=== PATIENT | female | born 1945 | race Caucasian/White ===

== ENCOUNTER → 2016-07-04 | Outpatient (CLI) | payer MEDICARE ==
[~2016-07-04] MED LIST: HUMULIN 70/30 703 M1 IJ; LISINOPRIL20 MG PO; METFORMIN HCL1000 MG PO
[2016-07-04 11:03] LABS: HEMOGLOBIN A1c 7.2 % (4.8-5.6)
[2016-07-04 11:21] LABS: ALBUMIN 4.3 gm/dl (3.1-4.5); ALKALINE PHOSPHATASE 60 U/L (45-117); BILIRUBIN, DIRECT 0.1 mg/dL (0.0-0.2); BILIRUBIN, TOTAL 0.7 mg/dl (0.2-1.0); BUN 24 mg/dl (7-24); CARBON DIOXIDE 27 mmol/L (21-32); CHLORIDE 105 mmol/L (98-107); CHOLESTEROL 144 mg/dL (<200); EST GLOM FILT AFRICAN AMERICAN > 60 ml/min; GLUCOSE 154 mg/dL (65-99); HDL CHOLESTEROL 40 mg/dl (40-60); SGOT/AST 29 IU/L (3-35); SGPT/ALT 36 U/L (12-78); SODIUM 142 mmol/L (136-145); TOTAL PROTEIN 7.6 gm/dL (6.4-8.2); TRIGLYCERIDES 476 mg/dl (<150)
[2016-07-04 12:31] LABS: VITAMIN D, 25-HYDROXY 36.1 ng/mL (30-100)
== END | disposition home or self-care (01) ==
LOC: LAB 10:22
PROVIDERS: Internal Medicine
DX: E11.65 Type 2 diabetes mellitus with hyperglycemia (principal); E03.9 Hypothyroidism, unspecified; E11.40 Type 2 diabetes mellitus with diabetic neuropathy, unspecified; E04.9 Nontoxic goiter, unspecified; E78.5 Hyperlipidemia, unspecified

== ENCOUNTER → 2017-06-12 | Outpatient (CLI) | payer MEDICARE ==
[2017-06-12 08:01] LABS: BILIRUBIN NEGATIVE (NEGATIVE); BLOOD TRACE-INTACT (NEGATIVE); CLARITY CLOUDY (CLEAR); COLOR YELLOW (YELLOW); GLUCOSE 3+ (NEGATIVE); KETONE NEGATIVE (NEGATIVE); LEUKO ESTERASE 1+ (NEGATIVE); NITRITE POSITIVE (NEGATIVE); SPECIFIC GRAVITY 1.025 (1.005-1.030); UROBILINOGEN 0.2 E.U./dl (0.2-1.0)
[2017-06-12 08:39] LABS: ALBUMIN 3.7 gm/dl (3.1-4.5); BILIRUBIN, DIRECT 0.2 mg/dL (0.0-0.2); BUN 22 mg/dl (7-24); CHLORIDE 108 mmol/L (98-107); POTASSIUM 3.9 mmol/L (3.5-5.1); SGOT/AST 22 IU/L (3-35); SGPT/ALT 31 U/L (12-78); SODIUM 143 mmol/L (136-145); TRIGLYCERIDES 197 mg/dl (<150); VLDL CHOLESTEROL 39 mg/dL (6-40)
[2017-06-12 08:41] LABS: ALKALINE PHOSPHATASE 54 U/L (45-117); CHOLESTEROL 134 mg/dL (<200); HDL CHOLESTEROL 39 mg/dl (40-60); LDL CHOLESTEROL 56 mg/dL (9-159); TOTAL PROTEIN 6.8 gm/dL (6.4-8.2)
[2017-06-12 09:06] LABS: WBC TNTC wbc/hpf (0-5)
[2017-06-12 09:08] LABS: BACTERIA 4+
== END | disposition home or self-care (01) ==
LOC: LAB 07:35
PROVIDERS: Internal Medicine
DX: E11.65 Type 2 diabetes mellitus with hyperglycemia (principal); E78.5 Hyperlipidemia, unspecified; E55.9 Vitamin D deficiency, unspecified

== ENCOUNTER → 2018-05-28 | Outpatient (CLI) | payer MEDICARE ==
[2018-05-28 13:35] LABS: BUN 28 mg/dl (7-24); CHLORIDE 105 mmol/L (98-107); CHOLESTEROL 109 mg/dL (<200); CREATININE 1.04 mg/dL (0.55-1.02); HDL CHOLESTEROL 38 mg/dl (40-60); LDL CHOLESTEROL 29 mg/dL (9-159); SODIUM 139 mmol/L (136-145); TRIGLYCERIDES 209 mg/dl (<150); VLDL CHOLESTEROL 42 mg/dL (6-40)
[2018-05-28 14:05] LABS: BILIRUBIN NEGATIVE (NEGATIVE); BLOOD NEGATIVE (NEGATIVE); CLARITY CLEAR (CLEAR); COLOR YELLOW (YELLOW); GLUCOSE 3+ (NEGATIVE); KETONE NEGATIVE (NEGATIVE); LEUKO ESTERASE NEGATIVE (NEGATIVE); NITRITE POSITIVE (NEGATIVE); PH 5.5 (5.0-9.0); UROBILINOGEN 0.2 E.U./dl (0.2-1.0)
[2018-05-28 14:19] LABS: BACTERIA 4+; EPITHELIAL CELLS 0-2; WBC 16-20 wbc/hpf (0-5)
== END | disposition home or self-care (01) ==
LOC: LAB 12:34
PROVIDERS: Internal Medicine
DX: E11.65 Type 2 diabetes mellitus with hyperglycemia (principal); E55.9 Vitamin D deficiency, unspecified; E78.5 Hyperlipidemia, unspecified

== ENCOUNTER 2018-11-24 23:28 | Emergency (ER) | payer MEDICARE ==
[~2018-11-24] VITALS: Ht 154.9 cm; Wt 68.0 kg
[2018-11-25 00:32] LABS: ACT PARTIAL THROMBO TIME 27.6 SECONDS (20.0-32.1)
[2018-11-25 00:41] LABS: BASO % 0.7 % (0.0-1.0); EOS # 0.2 10*3/uL (0.0-0.4); HEMATOCRIT 38.8 % (37.0-47.0); HEMOGLOBIN 13.2 g/dl (12.0-16.0); LYMPH # 2.8 10*3/uL (1.3-4.4); LYMPH % 46.9 % (27.0-41.0); MEAN CORPUSCULAR HGB 28.6 pg (27.0-31.0); MEAN PLATELET VOLUME 10.7 fl (9.6-12.3); MONO # 0.5 10*3/uL (0.1-1.0); MONO % 8.3 % (3.0-9.0); NEUT # 2.4 10*3/uL (2.3-7.9); NEUT % 40.9 % (47.0-73.0); PLATELET COUNT AUTOMATED 184 10*3/uL (130-400); RED BLOOD COUNT 4.62 10*6/uL (4.10-5.10); RED CELL DISTRI WIDTH 12.2 % (0-14.5); WHITE BLOOD COUNT 5.9 10*3/uL (4.8-10.8)
[2018-11-25 01:03] LABS: ALBUMIN 4.3 gm/dl (3.1-4.5); ALKALINE PHOSPHATASE 46 U/L (45-117); BUN 27 mg/dl (7-24); CHLORIDE 100 mmol/L (98-107); CREATININE 0.86 mg/dL (0.55-1.02); LIPASE 187 U/L (73-393); POTASSIUM 3.8 mmol/L (3.5-5.1); SGOT/AST 23 IU/L (3-35); SGPT/ALT 22 U/L (12-78); SODIUM 138 mmol/L (136-145); TOTAL PROTEIN 7.4 gm/dL (6.4-8.2)
[2018-11-25 01:05] LABS: TROPONIN I < 0.015 ng/ml (<0.045)
[2018-11-25 02:15] LABS: BILIRUBIN NEGATIVE (NEGATIVE); BLOOD NEGATIVE (NEGATIVE); CLARITY CLEAR (CLEAR); COLOR YELLOW (YELLOW); GLUCOSE NEGATIVE (NEGATIVE); KETONE NEGATIVE (NEGATIVE); LEUKO ESTERASE NEGATIVE (NEGATIVE); NITRITE NEGATIVE (NEGATIVE); SPECIFIC GRAVITY 1.015 (1.005-1.030)
[2018-11-25] MEDS ORDERED: PROTONIX40 MG PO (02:19)
[2018-11-25] MEDS ORDERED: ZOFRAN4 MG PO (02:19)
== END 2018-11-25 02:35 | disposition home or self-care (01) ==
LOC: ED 23:28
PROVIDERS: Emergency Medicine Emergency Medical Services
DX: K29.00 Acute gastritis without bleeding (principal); K21.9 Gastro-esophageal reflux disease without esophagitis; E11.9 Type 2 diabetes mellitus without complications; Z79.899 Other long term (current) drug therapy; Z79.4 Long term (current) use of insulin

== ENCOUNTER → 2019-03-04 | Outpatient (CLI) | payer MEDICARE ==
[~2019-03-04] MED LIST changes: +PROTONIX40 MG PO; +ZOFRAN4 MG PO
[2019-03-04 11:28] LABS: BILIRUBIN NEGATIVE (NEGATIVE); BLOOD NEGATIVE (NEGATIVE); CLARITY SL CLOUDY (CLEAR); COLOR YELLOW (YELLOW); GLUCOSE NEGATIVE (NEGATIVE); KETONE TRACE (NEGATIVE); LEUKO ESTERASE NEGATIVE (NEGATIVE); NITRITE NEGATIVE (NEGATIVE); SPECIFIC GRAVITY >= 1.030 (1.005-1.030); UROBILINOGEN 0.2 E.U./dl (0.2-1.0)
[2019-03-04 11:56] LABS: ALBUMIN 3.9 gm/dl (3.1-4.5); ALKALINE PHOSPHATASE 65 U/L (45-117); BILIRUBIN, DIRECT 0.2 mg/dL (0.0-0.2); BUN 24 mg/dl (7-24); CHLORIDE 104 mmol/L (98-107); CHOLESTEROL 170 mg/dL (<200); CREATININE 0.87 mg/dL (0.55-1.02); HDL CHOLESTEROL 30 mg/dl (40-60); LDL CHOLESTEROL 104 mg/dL (9-159); SGOT/AST 20 IU/L (3-35); SGPT/ALT 24 U/L (12-78); SODIUM 137 mmol/L (136-145); TRIGLYCERIDES 181 mg/dl (<150); VLDL CHOLESTEROL 36 mg/dL (6-40)
[2019-03-04 12:33] LABS: BACTERIA 2+; CALCIUM OXALATE CRYSTALS 1+; MUCOUS 1+
[2019-03-04 12:34] LABS: HYALINE CAST TNTC
[2019-03-04 13:04] LABS: VITAMIN D, 25-HYDROXY 66.8 ng/mL (30-100)
== END | disposition home or self-care (01) ==
LOC: LAB 10:53
PROVIDERS: Internal Medicine
DX: E11.40 Type 2 diabetes mellitus with diabetic neuropathy, unspecified (principal); E11.65 Type 2 diabetes mellitus with hyperglycemia; E78.5 Hyperlipidemia, unspecified; E55.9 Vitamin D deficiency, unspecified; E04.9 Nontoxic goiter, unspecified

== ENCOUNTER → 2019-05-14 | Outpatient (CLI) | payer MEDICARE | END | disposition home or self-care (01) | LOC: RESCLI 17:11 | DX: J40 Bronchitis, not specified as acute or chronic (principal) ==

== ENCOUNTER → 2019-08-05 | Outpatient (CLI) | payer MEDICARE ==
[2019-08-05 11:07] LABS: ALBUMIN 3.9 gm/dl (3.1-4.5); BILIRUBIN, DIRECT 0.2 mg/dL (0.0-0.2); CREATININE 1.21 mg/dL (0.55-1.02); FREE T4 0.94 ng/dl (0.76-1.46); POTASSIUM 3.9 mmol/L (3.5-5.1); TOTAL PROTEIN 7.8 gm/dL (6.4-8.2)
[2019-08-05 11:12] LABS: THYROID STIM HORMONE (HS) 1.98 uIU/ml (0.358-4.75)
[2019-08-05 12:11] LABS: BILIRUBIN NEGATIVE (NEGATIVE); BLOOD 2+ (NEGATIVE); CLARITY SL CLOUDY (CLEAR); COLOR YELLOW (YELLOW); GLUCOSE NEGATIVE (NEGATIVE); KETONE NEGATIVE (NEGATIVE); LEUKO ESTERASE NEGATIVE (NEGATIVE); NITRITE NEGATIVE (NEGATIVE); PH 6.5 (5.0-9.0); UROBILINOGEN 0.2 E.U./dl (0.2-1.0)
[2019-08-05 12:12] LABS: BACTERIA 1+
== END | disposition home or self-care (01) ==
LOC: LAB 10:02
PROVIDERS: Internal Medicine
DX: E11.65 Type 2 diabetes mellitus with hyperglycemia (principal); E78.5 Hyperlipidemia, unspecified; E55.9 Vitamin D deficiency, unspecified; E04.9 Nontoxic goiter, unspecified

== ENCOUNTER → 2019-12-23 | Outpatient (CLI) | payer MEDICARE ==
[2019-12-23 10:36] LABS: BILIRUBIN Negative (Negative); BLOOD 1+ (Negative); CLARITY Turbid (Clear); COLOR Yellow (Yellow); GLUCOSE Negative (Negative); KETONE Trace (Negative); LEUKO ESTERASE 1+ (Negative); NITRITE Negative (Negative); SPECIFIC GRAVITY 1.025 (1.001-1.030)
[2019-12-23 11:02] LABS: ALBUMIN 3.9 gm/dl (3.1-4.5); BILIRUBIN, DIRECT 0.1 mg/dL (0.0-0.2); CREATININE 1.52 mg/dL (0.55-1.02); FREE T4 0.92 ng/dl (0.76-1.46); POTASSIUM 3.8 mmol/L (3.5-5.1); TOTAL PROTEIN 7.4 gm/dL (6.4-8.2)
[2019-12-23 11:04] LABS: BACTERIA 4+; COARSE GRANULAR CAST TNTC; WBC 51-100 wbc/hpf (0-5)
[2019-12-23 11:07] LABS: THYROID STIM HORMONE (HS) 2.42 uIU/ml (0.358-4.75)
[2019-12-23 11:33] LABS: VITAMIN D, 25-HYDROXY 89.2 ng/mL (30-100)
== END | disposition home or self-care (01) ==
LOC: LAB 10:03
PROVIDERS: ATTEND Internal Medicine
DX: E11.65 Type 2 diabetes mellitus with hyperglycemia (principal); E04.9 Nontoxic goiter, unspecified; E55.9 Vitamin D deficiency, unspecified; E78.5 Hyperlipidemia, unspecified

== ENCOUNTER 2020-05-05 10:45 | Observation (INO) | payer MEDICARE ==
[~2020-05-05] VITALS: Ht 154.9 cm; Wt 59.0 kg
[2020-05-05 11:00] VITALS: BP 102/36
[2020-05-05 11:17] LABS: BASO % 0.5 % (0.0-1.0); EOS # 0.2 10*3/uL (0.0-0.4); EOS % 2.5 % (1.0-4.0); HEMATOCRIT 33.8 % (37.0-47.0); LYMPH # 1.9 10*3/uL (1.3-4.4); MEAN CELL VOLUME 85.8 fl (81.0-99.0); MEAN CORPUSCULAR HGB 28.9 pg (27.0-31.0); MEAN CORPUSCULAR HGB CONC 33.7 g/dl (33.0-37.0); MEAN PLATELET VOLUME 10.9 fl (9.6-12.3); MONO # 0.7 10*3/uL (0.1-1.0); NEUT # 3.2 10*3/uL (2.3-7.9); NEUT % 53.8 % (47.0-73.0); PLATELET COUNT AUTOMATED 192 10*3/uL (130-400); RED BLOOD COUNT 3.94 10*6/uL (4.10-5.10); RED CELL DISTRI WIDTH 12.9 % (0-14.5); WHITE BLOOD COUNT 5.9 10*3/uL (4.8-10.8)
[2020-05-05 11:33] LABS: LIPASE 196 U/L (73-393)
[2020-05-05 11:34] LABS: ALBUMIN 3.8 gm/dl (3.1-4.5); ALKALINE PHOSPHATASE 56 U/L (45-117); BUN 17 mg/dl (7-24); CHLORIDE 99 mmol/L (98-107); CREATININE 1.46 mg/dL (0.55-1.02); POTASSIUM 3.1 mmol/L (3.5-5.1); SGOT/AST 33 IU/L (3-35); SGPT/ALT 36 U/L (12-78); SODIUM 135 mmol/L (136-145); TOTAL PROTEIN 7.1 gm/dL (6.4-8.2)
[2020-05-05 11:36] LABS: TROPONIN I < 0.015 ng/ml (<0.045)
[2020-05-05 13:27] VITALS: BP 103/58
[2020-05-05 15:36] VITALS: BP 105/56
[2020-05-05 15:59] VITALS: BP 126/41
[2020-05-05 17:10] VITALS: BP 117/73
[2020-05-05] MEDS ORDERED: CRESTOR40 M1 PO (18:16)
[2020-05-05] MEDS ORDERED: LISINOPRIL20 MG PO (18:16)
[2020-05-05] MEDS ORDERED: HYDROCHLOROTH12.5 M2 PO (18:17)
[2020-05-05] MEDS ORDERED: GLUCOPHAGE500 M1 PO (18:17)
[2020-05-05] MEDS ORDERED: NOVOLIN 70100 UNIT/2 SQ (18:18)
[2020-05-05 20:00] VITALS: BP 130/61
[2020-05-06] VITALS: BP 92/50; BP 95/48
[2020-05-06 06:16] LABS: BASO % 0.5 % (0.0-1.0); EOS # 0.2 10*3/uL (0.0-0.4); EOS % 3.2 % (1.0-4.0); HEMATOCRIT 34.7 % (37.0-47.0); LYMPH # 2.3 10*3/uL (1.3-4.4); LYMPH % 39.9 % (27.0-41.0); MEAN CELL VOLUME 86.1 fl (81.0-99.0); MEAN CORPUSCULAR HGB 28.5 pg (27.0-31.0); MEAN CORPUSCULAR HGB CONC 33.1 g/dl (33.0-37.0); MEAN PLATELET VOLUME 11.1 fl (9.6-12.3); MONO # 0.6 10*3/uL (0.1-1.0); MONO % 9.8 % (3.0-9.0); NEUT # 2.7 10*3/uL (2.3-7.9); NEUT % 46.4 % (47.0-73.0); PLATELET COUNT AUTOMATED 203 10*3/uL (130-400); RED BLOOD COUNT 4.03 10*6/uL (4.10-5.10); RED CELL DISTRI WIDTH 12.8 % (0-14.5); WHITE BLOOD COUNT 5.7 10*3/uL (4.8-10.8)
[2020-05-06 06:29] LABS: CREATININE 1.38 mg/dL (0.55-1.02); POTASSIUM 3.8 mmol/L (3.5-5.1)
[2020-05-06 08:00] VITALS: BP 99/56
== END 2020-05-06 11:04 | disposition home or self-care (01) ==
LOC: ED 10:45 → EDHOLD 15:58 → 4E 16:11
PROVIDERS: Emergency Medicine; Family Medicine; ADMIT Internal Medicine; ATTEND Internal Medicine
DX: R07.89 Other chest pain (principal); E87.6 Hypokalemia; E87.1 Hypo-osmolality and hyponatremia; D64.9 Anemia, unspecified; K21.9 Gastro-esophageal reflux disease without esophagitis; E78.5 Hyperlipidemia, unspecified; I12.9 Hypertensive chronic kidney disease with stage 1 through stage 4 chronic kidney disease, or unspecified chronic kidney disease; E11.22 Type 2 diabetes mellitus with diabetic chronic kidney disease; N18.30 Chronic kidney disease, stage 3 unspecified; E83.41 Hypermagnesemia; F41.9 Anxiety disorder, unspecified

== ENCOUNTER → 2020-05-21 | Outpatient (CLI) | payer MEDICARE ==
[~2020-05-21] MED LIST changes: +CRESTOR40 M1 PO; +GLUCOPHAGE500 M1 PO; +HYDROCHLOROTH12.5 M2 PO; +NOVOLIN 70100 UNIT/2 SQ; +PYRIDIUM200 M1 PO; +SEPTDS PO
== END | disposition home or self-care (01) ==
LOC: RESCLI 01:18
PROVIDERS: ATTEND Internal Medicine Nephrology
DX: I12.9 Hypertensive chronic kidney disease with stage 1 through stage 4 chronic kidney disease, or unspecified chronic kidney disease (principal); E11.22 Type 2 diabetes mellitus with diabetic chronic kidney disease; N18.30 Chronic kidney disease, stage 3 unspecified; K21.9 Gastro-esophageal reflux disease without esophagitis; F41.9 Anxiety disorder, unspecified; E78.5 Hyperlipidemia, unspecified; E55.9 Vitamin D deficiency, unspecified; Z12.31 Encounter for screening mammogram for malignant neoplasm of breast; Z12.11 Encounter for screening for malignant neoplasm of colon; Z79.899 Other long term (current) drug therapy

== ENCOUNTER → 2020-05-25 | Outpatient (CLI) | payer MEDICARE ==
[2020-05-25 14:02] LABS: BILIRUBIN Negative (Negative); BLOOD Negative (Negative); CLARITY Cloudy (Clear); COLOR Yellow (Yellow); GLUCOSE Negative (Negative); KETONE Trace (Negative); LEUKO ESTERASE Trace (Negative); NITRITE Negative (Negative); PH 5.5 (4.5-8.0)
[2020-05-25 14:11] LABS: ALBUMIN 3.4 gm/dl (3.1-4.5); BILIRUBIN, DIRECT 0.2 mg/dL (0.0-0.2); CREATININE 1.23 mg/dL (0.55-1.02); POTASSIUM 3.7 mmol/L (3.5-5.1); TOTAL PROTEIN 6.8 gm/dL (6.4-8.2)
[2020-05-25 14:27] LABS: VITAMIN D, 25-HYDROXY 60.2 ng/mL (30-100)
[2020-05-25 14:40] LABS: BACTERIA 4+; RBC 0-2 rbc/hpf (0-2); WBC 16-20 wbc/hpf (0-5)
== END | disposition home or self-care (01) ==
LOC: LAB 13:12
PROVIDERS: ATTEND Internal Medicine
DX: E11.65 Type 2 diabetes mellitus with hyperglycemia (principal); E55.9 Vitamin D deficiency, unspecified; E11.40 Type 2 diabetes mellitus with diabetic neuropathy, unspecified; E78.5 Hyperlipidemia, unspecified

== ENCOUNTER 2020-06-04 14:43 | Emergency (ER) | payer MEDICARE ==
[~2020-06-04] VITALS: Ht 160 cm; Wt 59.0 kg
[~2020-06-04 14:43] MED LIST changes: -PYRIDIUM200 M1 PO; -SEPTDS PO
[2020-06-04 16:22] LABS: BASO % 0.3 % (0.0-1.0); EOS % 0.6 % (1.0-4.0); LYMPH # 0.6 10*3/uL (1.3-4.4); LYMPH % 8.8 % (27.0-41.0); MEAN CELL VOLUME 88.4 fl (81.0-99.0); MEAN CORPUSCULAR HGB 28.8 pg (27.0-31.0); MEAN CORPUSCULAR HGB CONC 32.6 g/dl (33.0-37.0); MEAN PLATELET VOLUME 10.5 fl (9.6-12.3); MONO # 0.4 10*3/uL (0.1-1.0); MONO % 5.2 % (3.0-9.0); NEUT # 5.9 10*3/uL (2.3-7.9); PLATELET COUNT AUTOMATED 154 10*3/uL (130-400); RED BLOOD COUNT 3.96 10*6/uL (4.10-5.10); RED CELL DISTRI WIDTH 12.5 % (0-14.5)
[2020-06-04 16:37] LABS: ALBUMIN 3.7 gm/dl (3.1-4.5); CREATININE 1.21 mg/dL (0.55-1.02); POTASSIUM 3.8 mmol/L (3.5-5.1); TOTAL PROTEIN 7.2 gm/dL (6.4-8.2)
[2020-06-04 17:25] LABS: BILIRUBIN Negative (Negative); BLOOD Negative (Negative); CLARITY Turbid (Clear); COLOR Yellow (Yellow); GLUCOSE Negative (Negative); KETONE Negative (Negative); LEUKO ESTERASE Negative (Negative); NITRITE Negative (Negative); SPECIFIC GRAVITY 1.015 (1.001-1.030)
[2020-06-04 17:39] LABS: EPITHELIAL CELLS 0-2; WBC 0-2 wbc/hpf (0-5)
[2020-06-04] MEDS ORDERED: PYRIDIUM200 M1 PO (19:27)
[2020-06-04] MEDS ORDERED: SEPTDS PO (19:27)
== END 2020-06-04 19:29 | disposition home or self-care (01) ==
LOC: ED 14:43
PROVIDERS: Physician Assistant
DX: R30.0 Dysuria (principal); Z79.899 Other long term (current) drug therapy; Z79.4 Long term (current) use of insulin

== ENCOUNTER → 2020-07-28 | Outpatient (CLI) | payer MEDICARE ==
[~2020-07-28] MED LIST changes: +PYRIDIUM200 M1 PO; +SEPTDS PO
== END | disposition home or self-care (01) ==
LOC: RESCLI 00:58
PROVIDERS: ATTEND Internal Medicine
DX: K21.9 Gastro-esophageal reflux disease without esophagitis (principal); E11.9 Type 2 diabetes mellitus without complications; I10 Essential (primary) hypertension; E78.5 Hyperlipidemia, unspecified; E55.9 Vitamin D deficiency, unspecified; Z12.31 Encounter for screening mammogram for malignant neoplasm of breast; Z12.11 Encounter for screening for malignant neoplasm of colon; Z79.899 Other long term (current) drug therapy

== ENCOUNTER → 2020-08-05 | Outpatient (CLI) | payer MEDICARE | END | disposition home or self-care (01) | LOC: MAMMO 00:55 | PROVIDERS: ATTEND Family Medicine | DX: Z12.31 Encounter for screening mammogram for malignant neoplasm of breast (principal); N64.89 Other specified disorders of breast ==

== ENCOUNTER → 2020-09-28 | Outpatient (CLI) | payer MEDICARE ==
[2020-09-28 09:24] LABS: BILIRUBIN Negative (Negative); BLOOD Trace-Lysed (Negative); CLARITY Cloudy (Clear); COLOR Yellow (Yellow); GLUCOSE Negative (Negative); KETONE Negative (Negative); LEUKO ESTERASE 3+ (Negative); NITRITE Positive (Negative); PH 5.5 (4.5-8.0); SPECIFIC GRAVITY 1.015 (1.001-1.030); UROBILINOGEN 0.2 E.U./dl (0.0-1.0)
[2020-09-28 09:34] LABS: WBC TNTC wbc/hpf (0-5)
[2020-09-28 09:35] LABS: BACTERIA 3+; RBC 31-40 rbc/hpf (0-2)
[2020-09-28 09:36] LABS: ALBUMIN 3.6 gm/dl (3.1-4.5); ALKALINE PHOSPHATASE 70 U/L (45-117); BUN 13 mg/dl (7-24); CHLORIDE 109 mmol/L (98-107); CHOLESTEROL 168 mg/dL (<200); CREATININE 0.85 mg/dL (0.55-1.02); LDL CHOLESTEROL 62 mg/dL (9-159); POTASSIUM 3.8 mmol/L (3.5-5.1); SGOT/AST 27 IU/L (3-35); SGPT/ALT 31 U/L (12-78); SODIUM 142 mmol/L (136-145); TOTAL PROTEIN 7.1 gm/dL (6.4-8.2); TRIGLYCERIDES 378 mg/dl (<150)
== END | disposition home or self-care (01) ==
LOC: LAB 09:01
PROVIDERS: ATTEND Internal Medicine
DX: E78.5 Hyperlipidemia, unspecified (principal); E11.65 Type 2 diabetes mellitus with hyperglycemia; E04.9 Nontoxic goiter, unspecified; E55.9 Vitamin D deficiency, unspecified; E11.40 Type 2 diabetes mellitus with diabetic neuropathy, unspecified; I95.0 Idiopathic hypotension

== ENCOUNTER → 2021-02-22 | Outpatient (CLI) | payer MEDICARE ==
[2021-02-22 11:00] LABS: BILIRUBIN Negative (Negative); BLOOD Negative (Negative); CLARITY Clear (Clear); COLOR Yellow (Yellow); GLUCOSE Negative (Negative); KETONE Negative (Negative); LEUKO ESTERASE Trace (Negative); NITRITE Negative (Negative)
[2021-02-22 11:44] LABS: MUCOUS 1+
[2021-02-22 11:56] LABS: ALBUMIN 3.3 gm/dl (3.1-4.5); ALKALINE PHOSPHATASE 64 U/L (45-117); BUN 16 mg/dl (7-24); CHLORIDE 107 mmol/L (98-107); CHOLESTEROL 227 mg/dL (<200); CREATININE 0.85 mg/dL (0.55-1.02); LDL CHOLESTEROL 145 mg/dL (9-159); SGOT/AST 27 IU/L (3-35); SGPT/ALT 26 U/L (12-78); SODIUM 142 mmol/L (136-145); TOTAL PROTEIN 6.9 gm/dL (6.4-8.2); TRIGLYCERIDES 233 mg/dl (<150)
[2021-02-22 12:06] LABS: VITAMIN D, 25-HYDROXY 53.5 ng/mL (30-100)
== END | disposition home or self-care (01) ==
LOC: LAB 10:33
PROVIDERS: ATTEND Internal Medicine
DX: E11.40 Type 2 diabetes mellitus with diabetic neuropathy, unspecified (principal); I95.0 Idiopathic hypotension; E04.9 Nontoxic goiter, unspecified; E55.9 Vitamin D deficiency, unspecified; E11.65 Type 2 diabetes mellitus with hyperglycemia; E78.5 Hyperlipidemia, unspecified

== ENCOUNTER → 2021-09-27 | Outpatient (CLI) | payer MEDICARE ==
[2021-09-27 10:54] LABS: BILIRUBIN Negative (Negative); BLOOD Negative (Negative); CLARITY Clear (Clear); COLOR Yellow (Yellow); GLUCOSE Negative (Negative); KETONE Negative (Negative); LEUKO ESTERASE Negative (Negative); NITRITE Negative (Negative); SPECIFIC GRAVITY 1.025 (1.001-1.030)
[2021-09-27 11:08] LABS: BUN 19 mg/dl (7-24); CHLORIDE 110 mmol/L (98-107); POTASSIUM 3.9 mmol/L (3.5-5.1); SODIUM 142 mmol/L (136-145)
[2021-09-27 11:16] LABS: BACTERIA 1+; MUCOUS 1+
[2021-09-27 11:20] LABS: ALKALINE PHOSPHATASE 42 U/L (45-117); CHOLESTEROL 171 mg/dL (<200); CREATININE 0.92 mg/dL (0.55-1.02); LDL CHOLESTEROL 96 mg/dL (9-159); SGOT/AST 25 IU/L (3-35); SGPT/ALT 21 U/L (12-78); TRIGLYCERIDES 167 mg/dl (<150)
[2021-09-27 12:20] LABS: VITAMIN D, 25-HYDROXY 53.2 ng/mL (30-100)
== END ==
LOC: LAB 10:18
PROVIDERS: ATTEND Internal Medicine
DX: E11.65 Type 2 diabetes mellitus with hyperglycemia (principal); I95.0 Idiopathic hypotension; E04.9 Nontoxic goiter, unspecified; E11.40 Type 2 diabetes mellitus with diabetic neuropathy, unspecified; E55.9 Vitamin D deficiency, unspecified; E78.5 Hyperlipidemia, unspecified

== ENCOUNTER → 2022-02-21 | Outpatient (CLI) | payer MEDICARE ==
[2022-02-21 10:12] LABS: BILIRUBIN Negative (Negative); BLOOD Negative (Negative); CLARITY Clear (Clear); COLOR Yellow (Yellow); GLUCOSE Negative (Negative); KETONE Negative (Negative); LEUKO ESTERASE Negative (Negative); NITRITE Negative (Negative)
[2022-02-21 10:33] LABS: ALKALINE PHOSPHATASE 42 U/L (46-116); BUN 17 mg/dl (9-23); CHLORIDE 106 mmol/L (98-107); CHOLESTEROL 185 mg/dL (<200); LDL CHOLESTEROL 119 mg/dL (9-159); POTASSIUM 3.9 mmol/L (3.4-5.1); SGPT/ALT 19 U/L (10-49); THYROID STIM HORMONE (HS) 3.221 uIU/ml (0.550-4.780); TRIGLYCERIDES 148 mg/dl (<150)
[2022-02-21 10:34] LABS: BACTERIA TRACE; EPITHELIAL CELLS 0-2; MUCOUS 2+; RBC 0-2 rbc/hpf (0-2); WBC 0-2 wbc/hpf (0-5)
[2022-02-21 10:59] LABS: VITAMIN D, 25-HYDROXY 70.6 ng/mL (30-100)
== END | disposition home or self-care (01) ==
LOC: LAB 09:14
PROVIDERS: ATTEND Internal Medicine
DX: E11.65 Type 2 diabetes mellitus with hyperglycemia (principal); E11.40 Type 2 diabetes mellitus with diabetic neuropathy, unspecified; E55.9 Vitamin D deficiency, unspecified; E78.5 Hyperlipidemia, unspecified; E04.9 Nontoxic goiter, unspecified

== ENCOUNTER → 2022-07-28 | Outpatient (CLI) | payer OTHER ==
[2022-07-28 09:42] LABS: BILIRUBIN Negative (Negative); BLOOD Negative (Negative); CLARITY Clear (Clear); COLOR Yellow (Yellow); GLUCOSE Negative (Negative); KETONE Negative (Negative); LEUKO ESTERASE Negative (Negative); NITRITE Negative (Negative)
[2022-07-28 10:18] LABS: BACTERIA TRACE; RBC 0-2 rbc/hpf (0-2); WBC 0-2 wbc/hpf (0-5)
[2022-07-28 10:20] LABS: ALKALINE PHOSPHATASE 67 U/L (46-116); BUN 9 mg/dl (9-23); CHLORIDE 104 mmol/L (98-107); CHOLESTEROL 191 mg/dL (<200); LDL CHOLESTEROL 120 mg/dL (9-159); POTASSIUM 3.9 mmol/L (3.4-5.1); SGPT/ALT 12 U/L (10-49); TOTAL PROTEIN 7.3 gm/dL (6.0-8.0); TRIGLYCERIDES 198 mg/dl (<150)
== END | disposition home or self-care (01) ==
LOC: LAB 09:02
PROVIDERS: ATTEND Internal Medicine
DX: E11.65 Type 2 diabetes mellitus with hyperglycemia (principal); E11.40 Type 2 diabetes mellitus with diabetic neuropathy, unspecified; E04.9 Nontoxic goiter, unspecified; E55.9 Vitamin D deficiency, unspecified; E78.5 Hyperlipidemia, unspecified